=== PATIENT | male | born 1930 | race Caucasian/White ===

== ENCOUNTER 2017-07-24 09:14 | Observation (INO) | payer MEDICARE, BC ==
[2017-07-24] MEDS ORDERED: SODIUM CHLORIDE 0.9% 1,000 ML IV STA (09:26)
[2017-07-24] MEDS ORDERED: NITROGLYCERIN SL TABS 0.4 MG TAB SUBLINGUAL STA (09:26)
[2017-07-24] MEDS ORDERED: ASPIRIN 81 MG PO STA (09:26)
--- NOTE | 2017-07-24 09:31 | ED ---
Chest Pain HPI - General Chief Complaint: Chest Pain Stated Complaint: chest pain Time Seen by Provider: 07/24/17 09:19 Source: patient, family, RN notes reviewed Mode of arrival: wheelchair Limitations: no limitations - History of Present Illness Initial Comments: This 86-year-old male with a history of heart disease who states he had the onset last evening of intermittent episodes of left-sided chest pain it persisted throughout the night and into this morning. He states that sharp left -sided 78/10 in severity associate was some shortness of breath. He has dizziness when he did have some dizziness recently. No fevers chills sweats no nausea no cough or phlegm production. No abdominal pain. MD Complaint: chest pain - Related Data Home Medications Medication Instructions Recorded Confirmed Loratadine [Claritin] 10 mg PO DAILY 05/03/14 07/24/17 ALPRAZolam [Xanax] 0.25 - 0.5 mg PO TID PRN 07/24/17 07/24/17 Omeprazole 40 mg PO DAILY 07/24/17 07/24/17 Previous Rx's Medication Instructions Recorded Atorvastatin [Lipitor] 40 mg PO HS #30 tablet 05/06/14 Nitroglycerin Sl Tabs [Nitrostat] 0.4 mg SUBLINGUAL Q5M PRN #20 tab 05/06/14 Aspirin 81 mg PO BID #60 chewable 05/14/14 Allergies Allergy/AdvReac Type Severity Reaction Status Date / Time Penicillins Allergy Rash/Hives Verified 07/24/17 09:38 Sulfa (Sulfonamide Allergy Rash/Hives Verified 07/24/17 09:38 Antibiotics) Review of Systems ROS Statement: Those systems with pertinent positive or pertinent negative responses have been documented in the HPI. ROS Other: All systems not noted in ROS Statement are negative. EKG Findings - EKG Results: EKG: interpreted by JACK, sinus rhythm (Sinus rhythm with a rate of 68 IN interval 166 QRS duration 146 QT since QTC of 424/450 evidence a right bundle- branch block pattern. This EKG is compared with multiple EKGs from April 2014) Past Medical History Past Medical History: Cancer, Chest Pain / Angina, Eye Disorder, GERD/Reflux, Hyperlipidemia, Hypertension, Myocardial Infarction (CT), Osteoarthritis (OA), Prostate Disorder Additional Past Medical History / Comment(s): SHORTNESS OF BREATH. HX PROSTATE CA; HX CATARACTS; COPD PER CXR. Last Myocardial Infarction Date:: 2013 History of Any Multi-Drug Resistant Organisms: None Reported Past Surgical History: Heart Catheterization With Stent, Orthopedic Surgery, Prostate Surgery, Tonsillectomy Additional Past Surgical History / Comment(s): RT FOOT SURG. CATH W/ STENT, AND RESTENTING, TOTAL STENTS X3, CATARACTS SX Past Anesthesia/Blood Transfusion Reactions: No Reported Reaction Date of Last Stent Placement:: 04/2014 Past Psychological History: No Psychological Hx Reported Smoking Status: Never smoker Past Alcohol Use History: None Reported Past Drug Use History: None Reported - Past Family History Mother Sister(s) Family Medical History: Cancer Mother Daughter(s) Family Medical History: Cancer General Exam - General Exam Comments Initial Comments: This is a well-developed well-nourished awake alert oriented 3 male Limitations: no limitations General appearance: alert, in no apparent distress Head exam: Present: atraumatic, normocephalic, normal inspection Eye exam: Present: normal appearance, PERRL, EOMI. Absent: scleral icterus, conjunctival injection, periorbital swelling ENT exam: Present: normal exam, mucous membranes moist Neck exam: Present: normal inspection. Absent: tenderness, meningismus, lymphadenopathy Respiratory exam: Present: normal lung sounds bilaterally, chest wall tenderness (Reproducible tenderness palpation he does state however he had pain like this with his previous heart disease and stents.). Absent: respiratory distress, wheezes, rales, rhonchi, stridor Cardiovascular Exam: Present: regular rate, normal rhythm, normal heart sounds. Absent: systolic murmur, diastolic murmur, rubs, gallop, clicks GI/Abdominal exam: Present: soft, normal bowel sounds. Absent: distended, tenderness, guarding, rebound, rigid Extremities exam: Present: normal inspection, full ROM, normal capillary refill. Absent: tenderness, pedal edema, joint swelling, calf tenderness Back exam: Present: normal inspection Neurological exam: Present: alert, oriented X3, CN II-XII intact Psychiatric exam: Present: normal affect, normal mood Skin exam: Present: warm, dry, intact, normal color. Absent: rash Course Vital Signs 07/24/17 07/24/17 07/24/17 09:15 10:32 11:20 Temperature 98.3 F Pulse Rate 68 96 60 Respiratory 20 18 18 Rate Blood Pressure 151/70 143/72 148/70 O2 Sat by Pulse 99 98 98 Oximetry Chest Pain MDM - MDM I did review the imaging and reports no acute findings. I did discuss the findings with the patient and his family who were present. Patient will be admitted for evaluation by cardiology. Patient's symptoms are similar to his previous cardiac episode so initially the initial lab findings EKG are nondiagnostic. Critical Care Time Critical Care Time: Yes Critical Care Time: 31 minutes of critical care time which includes initial presentation with history physical labs x-rays reevaluation patient on several occasions discussion with the patient family members regarding findings. Review of old charting that was available. Discussion with the admitting physician and admission orders and documentation of the above. Disposition Clinical Impression: Unstable angina pectoris, Atypical chest pain Disposition: ADMITTED IP TO THIS [facility] Condition: Stable Referrals: Ken Rod MD [Primary Care Provider] - 1-2 days
[2017-07-24 10:07] LABS: Basophils % (A) 1 %; CH 30.6; CHCM 34.2; Eosinophils # (A) 0.1 k/uL (0-0.7); Eosinophils % (A) 1 %; HDW 2.51; HGB 12.6 gm/dL (13.0-17.5); Luc % (Auto) 2; Lymphocytes # (A) 1.2 k/uL (1.0-4.8); Lymphocytes % (A) 23 %; MCH 29.8 pg (25.0-35.0); MCHC 33.1 g/dL (31.0-37.0); Mean Platelet Volume 7.3; Monocytes # (A) 0.4 k/uL (0-1.0); Monocytes % (A) 7 %; Neutrophils # (A) 3.7 k/uL (1.3-7.7); Neutrophils % (A) 67 %; RBC 4.22 m/uL (4.30-5.90); WBC 5.5 k/uL (3.8-10.6); WBC (Perox) 5.91
[2017-07-24 10:14] LABS: ALT 41 U/L (21-72); AST 22 U/L (17-59); Alkaline Phosphatase 65 U/L (38-126); Anion Gap 12 mmol/L; Blood Urea Nitrogen 21 mg/dL (9-20); Calcium 9.5 mg/dL (8.4-10.2); Carbon Dioxide 25 mmol/L (22-30); Chloride 103 mmol/L (98-107); Glucose 86 mg/dL (74-99); Magnesium 1.9 mg/dL (1.6-2.3); Non-African American GFR(MDRD) >60 (>60 ml/min/1.73 sqM); Potassium 4.1 mmol/L (3.5-5.1); Sodium 140 mmol/L (137-145); Total Bilirubin 0.6 mg/dL (0.2-1.3); Total Protein 6.9 g/dL (6.3-8.2)
[2017-07-24 10:24] LABS: Partial Thromboplastin Time 24.2 sec (22.0-30.0); Prothrombin Time 10.6 sec (9.0-12.0)
--- NOTE | 2017-07-24 10:30 | XR ---
EXAMINATION TYPE: XR chest 2V DATE OF EXAM: 07/24/2017 COMPARISON: 03/12/2015 HISTORY: Chest pain and shortness of breath TECHNIQUE: Frontal and lateral views of the chest are obtained. FINDINGS: There is no focal air space opacity, pleural effusion, or pneumothorax seen. There is pulm onary hyperinflation with flattening of the diaphragms on the lateral image and biapical lucency rela ting to underlying COPD. Partial intrathoracic stomach is noted. The cardiac silhouette size is with in normal limits. The osseous structures are intact. Mild degenerative changes of the thoracic spin e are seen. IMPRESSION: 1. No acute cardiopulmonary process. 2. Radiographic sequela of COPD. 3. Partial intrathoracic stomach.
[2017-07-24 10:38] LABS: Creatine Kinase 100 U/L (55-170)
[2017-07-24 10:50] LABS: Creatine Kinase MB 1.7 ng/mL (0.0-2.4); Troponin I <0.012 ng/mL (0.000-0.034)
[2017-07-24] MEDS ORDERED: NITROGLYCERIN SL TABS 0.4 MG TAB SUBLINGUAL PRN (11:56)
[2017-07-24] MEDS ORDERED: HEPARIN SODIUM,PORCINE 5,000 UNIT/ML 1 ML VIAL IV ONE (11:56)
[2017-07-24] MEDS ORDERED: HEPARIN SODIUM,PORCINE/D5W PMX 25,000 UNIT in DEXTROSE/WATER 1 500ML.BAG IV SCH (12:00)
[2017-07-24] MEDS ORDERED: SODIUM CHLORIDE 0.9% 1,000 ML IV SCH (12:00)
[2017-07-24] MEDS: NITROGLYCERIN OINT 1 INCH/GM PACKET TOPICAL SCH ×2 (13:27→21:04)
[2017-07-24 15:56] LABS: Creatine Kinase 84 U/L (55-170)
[2017-07-24 16:08] LABS: Creatine Kinase MB 1.4 ng/mL (0.0-2.4); Troponin I <0.012 ng/mL (0.000-0.034)
--- NOTE | 2017-07-24 16:14 | P.HPIM ---
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 Patient chest pain is constant 8 x 10 in severity nonradiating, reproducible musculoskeletal, not associated with shortness of breath at is diaphoresis night and not associated with nausea or vomiting. Patient denied any cough. His chest pain is nonpleuritic in nature Review of Systems REVIEW OF SYSTEMS: CONSTITUTIONAL: No fever, no malaise, no fatigue. HEENT: No recent visual problems or hearing problems. Denied any sore throat. CARDIOVASCULAR: No orthopnea, PND, no palpitations, no syncope. PULMONARY: No shortness of breath, no cough, no hemoptysis. GASTROINTESTINAL: No diarrhea, no nausea, no vomiting, no abdominal pain. Normoactive bowel sounds. NEUROLOGICAL: No headaches, no weakness, no numbness. HEMATOLOGICAL: Denies any bleeding or petechiae. GENITOURINARY: Denies any burning micturition, frequency, or urgency. MUSCULOSKELETAL/RHEUMATOLOGICAL: Denies any joint pain, swelling, or any muscle pain. ENDOCRINE: Denies any polyuria or polydipsia. The rest of the 14-point review of systems is negative. Past Medical History Past Medical History: Coronary Artery Disease (CAD), Cancer, Chest Pain / Angina , Eye Disorder, GERD/Reflux, Hyperlipidemia, Hypertension, Myocardial Infarction (MT), Osteoarthritis (OA), Prostate Disorder Additional Past Medical History / Comment(s): Prostrate cancer with surgery/ radiation, vertigo, bilateral tinnitis-worse in R ear, head injuries with concussions, R foot burning sensation since power take off injury. Last Myocardial Infarction Date:: 2013 History of Any Multi-Drug Resistant Organisms: None Reported Past Surgical History: Heart Catheterization, Heart Catheterization With Stent, Orthopedic Surgery, Prostate Surgery, Tonsillectomy Additional Past Surgical History / Comment(s): PROSTATECTOMY, RT FOOT SURG AFTER POWER TAKE OFF INJURY, PCI W/ STENTS, TOTAL STENTS X3, Past Anesthesia/Blood Transfusion Reactions: No Reported Reaction Date of Last Stent Placement:: 04/2014 Smoking Status: Never smoker - Past Family History Mother Sister(s) Family Medical History: Cancer Father Family Medical History: No Reported History Additional Family Medical History / Comment(s): Father was healthy and lived into his 80s Mother Daughter(s) Family Medical History: Cancer Additional Family Medical History / Comment(s): unknown type of cancer. Medications and Allergies Home Medications Medication Instructions Recorded Confirmed Type Loratadine [Claritin] 10 mg PO DAILY 05/03/14 07/24/17 History Atorvastatin [Lipitor] 40 mg PO HS #30 tablet 05/06/14 07/24/17 Rx Nitroglycerin Sl Tabs [Nitrostat] 0.4 mg SUBLINGUAL Q5M PRN #20 tab 05/06/14 Rx Aspirin 81 mg PO BID #60 chewable 05/14/14 07/24/17 Rx ALPRAZolam [Xanax] 0.25 - 0.5 mg PO TID PRN 07/24/17 07/24/17 History Omeprazole 40 mg PO DAILY 07/24/17 07/24/17 History Allergies Allergy/AdvReac Type Severity Reaction Status Date / Time Penicillins Allergy Rash/Hives Verified 07/24/17 09:38 Sulfa (Sulfonamide Allergy Rash/Hives Verified 07/24/17 09:38 Antibiotics) Physical Exam Vitals: Vital Signs Temp Pulse Pulse Resp BP BP Pulse Ox 07/24/17 16:00 98.1 F 63 18 140/73 98 07/24/17 15:27 98 07/24/17 13:07 97.7 F 55 L 18 143/66 100 07/24/17 12:21 59 L 18 142/89 100 07/24/17 11:20 60 18 148/70 98 07/24/17 10:32 96 18 143/72 98 07/24/17 09:15 98.3 F 68 20 151/70 99 Intake and Output 07/24/17 07/24/17 07/24/17 06:59 14:59 22:59 Other: Voiding Method Toilet # Voids 1 Weight 76.9 kg Patient Weight 07/25/17 06:59 Weight 76.9 kg PHYSICAL EXAMINATION: GENERAL: The patient is alert and oriented x3, not in any acute distress. Well developed, well nourished. HEENT: Pupils are round and equally reacting to light. EOMI. No scleral icterus. No conjunctival pallor. Normocephalic, atraumatic. No pharyngeal erythema. No thyromegaly. CARDIOVASCULAR: S1 and S2 present. No murmurs, rubs, or gallops. Chest pain is reproducible PULMONARY: Chest is clear to auscultation, no wheezing or crackles. ABDOMEN: Soft, nontender, nondistended, normoactive bowel sounds. No palpable organomegaly. MUSCULOSKELETAL: No joint swelling or deformity. EXTREMITIES: No cyanosis, clubbing, or pedal edema. NEUROLOGICAL: Gross neurological examination did not reveal any focal deficits. SKIN: No rashes. Results CBC & Chem 7: 07/24/17 09:50 07/24/17 09:50 Labs: Abnormal Lab Results - Last 24 Hours (Table) 07/24/17 07/24/17 Range/Units 09:50 09:50 RBC 4.22 L (4.30-5.90) m/uL Hgb 12.6 L (13.0-17.5) gm/dL Hct 38.0 L (39.0-53.0) % BUN 21 H (9-20) mg/dL Thrombosis Risk Factor Assmnt - Choose All That Apply Any of the Below Risk Factors Present?: Yes Other Risk Factors: Yes Each Risk Factor Represents 2 Points: Malignancy Each Risk Factor Represents 3 Points: Age 75 years or older Other congenital or acquired thrombophilia - If yes, enter type in comment: No Thrombosis Risk Factor Assessment Total Risk Factor Score: 5 Thrombosis Risk Factor Assessment Level: High Risk Assessment and Plan Plan: #1 chest pain: Related to reducible in nature mostly musculoskeletal but we will rule out acute coronary syndromes and unstable angina, cardiology was consulted. #2 history of coronary artery disease #3 hyperlipidemia #4 gastroesophageal reflux disease For above-mentioned chronic medical problems patient will be continued on home medications.
--- NOTE | 2017-07-24 19:11 | ECHOF ---
Referral Reason:chest pain MEASUREMENTS -------- HEIGHT: 182.9 cm WEIGHT: 78.5 kg BP: 142/89 RVIDd: 3.3 cm (< 3.3) IVSd: 1.0 cm (0.6 - 1.1) LVIDd: 3.9 cm (3.9 - 5.3) LVPWd: 1.0 cm (0.6 - 1.1) IVSs: 1.6 cm LVIDs: 2.8 cm LVPWs: 1.7 cm LA Diam: 2.9 cm (2.7 - 3.8) LAESV Index (A-L): 29.12 ml/m Ao Diam: 3.7 cm (2.0 - 3.7) AV Cusp: 2.0 cm (1.5 - 2.6) MV EXCURSION: 13.015 mm (> 18.000) MV EF SLOPE: 76 mm/s (70 - 150) EPSS: 1.3 cm MV E John: 1.05 m/s MV DecT: 185 ms MV A John: 0.99 m/s MV E/A Ratio: 1.07 AR PHT: 699 ms RAP: 5.00 mmHg RVSP: 33.26 mmHg FINDINGS -------- Resting bradycardia (HR<60bpm). This was a technically adequate study. The left ventricular size is normal. Left ventricular wall thickness is normal. Overall left ventricular systolic function is low-normal with, an EF between 50 - 55 %. The right ventricle is mildly enlarged. LA is midly dilated 29-33ml/m2. The right atrium is normal in size. There is mild aortic valve sclerosis. There is mild aortic regurgitation. The mitral valve is normal. Mild tricuspid regurgitation present. Right ventricular systolic pressure is normal at < 35 mmHg. There is no pulmonic regurgitation present. The aortic root is dilated measuring 3.7cm. Normal inferior vena cava with normal inspiratory collapse consistent with estimated right atrial pressure of 5 mmHg. There is no pericardial effusion. CONCLUSIONS -------- 1. Resting bradycardia (HR<60bpm). 2. There is mild aortic regurgitation. 3. The mitral valve is normal. 4. Mild tricuspid regurgitation present. 5. Right ventricular systolic pressure is normal at < 35 mmHg. 6. There is no pulmonic regurgitation present. 7. The aortic root is dilated measuring 3.7cm. 8. Normal inferior vena cava with normal inspiratory collapse consistent with estimated right atrial pressure of 5 mmHg. 9. There is no pericardial effusion. 10. This was a technically adequate study. 11. The left ventricular size is normal. 12. Left ventricular wall thickness is normal. 13. Overall left ventricular systolic function is low-normal with, an EF between 50 - 55 %. 14. The right ventricle is mildly enlarged. 15. LA is midly dilated 29-33ml/m2. 16. The right atrium is normal in size. 17. There is mild aortic valve sclerosis. FINISHING PAN OPERATOR: Glenna Patricio RDCS
[2017-07-24] MEDS ORDERED: ATORVASTATIN 40 MG TAB PO SCH (21:00)
[2017-07-24 22:16] LABS: Creatine Kinase 76 U/L (55-170)
[2017-07-24 22:28] LABS: Creatine Kinase MB 1.1 ng/mL (0.0-2.4); Troponin I <0.012 ng/mL (0.000-0.034)
[2017-07-25 03:03] LABS: Cholesterol 111 mg/dL (<200); HDL Cholesterol 40 mg/dL (40-60)
[2017-07-25] MEDS: NITROGLYCERIN OINT 1 INCH/GM PACKET TOPICAL SCH ×2 (03:54→07:01)
[2017-07-25] MEDS ORDERED: PANTOPRAZOLE 40 MG TABLET PO SCH (07:30)
[2017-07-25 08:24] VITALS: RESP 16
[2017-07-25] MEDS ORDERED: ASPIRIN 325 MG TAB PO SCH (09:00)
[2017-07-25] MEDS ORDERED: LORATADINE 10 MG TAB PO SCH (09:00)
[2017-07-25] MEDS ORDERED: ASPIRIN 81 MG PO SCH (09:23)
--- NOTE | 2017-07-25 10:36 | CONS ---
CONSULTATION Mr. Mai is an 86-year-old male who is followed on a regular basis by Dr. 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 The discomfort is left- sided without any radiation and different from his prior anginal pain. He has a known history of coronary disease and he presented in 2013 with a non STEMI and an occluded left circumflex obtuse marginal branch and underwent stenting of that vessel. Subsequently was readmitted to the hospital in February of 2015, underwent repeat cardiac catheterization and was found to have intermediate disease in the mid and distal left circumflex with normal fractional flow reserve. He is reasonably active physically, has no exertional chest pain, has no tightness in the chest. No breathing problem. He has some dizziness. No palpitation. No syncope. No PND or orthopnea or peripheral edema. At the time of his cardiac catheterization, he had mild disease in the LAD with mild to moderate disease in the right coronary artery. Patient's coronary risk factors are positive for hyperlipidemia. He is a nonsmoker, nondiabetic, no documented hypertension. MEDICATION: His medications at home included aspirin once a day, omeprazole 40 mg daily and alprazolam on a p.r.n. basis. REVIEW OF SYSTEMS: RESPIRATORY SYSTEM: He has no recent wheezing. No cough. No history of documented obstructive lung disease. GI SYSTEM: No recent GI bleed. No peptic ulcer disease. SYSTEM: No dysuria or hematuria. NERVOUS SYSTEM: No history of stroke or seizure. PHYSICAL EXAMINATION: He is an 86-year-old male, alert, oriented, in no apparent distress. Blood pressure 140/70 with the heart rate in the 70s. HEAD: Normocephalic. EYES: Sclerae anicteric. NECK: Good carotid upstroke. No bruit. No jugular venous distention. LUNGS: Clear to auscultation. HEART: Regular rate and rhythm. S1, S2. No S3 with a systolic murmur ejection type early peaking. No diastolic murmur. Chest wall with chest wall tenderness located on the left side reproducing his pain. ABDOMEN: Soft, nontender. Positive bowel sounds. No organomegaly. EXTREMITIES: No edema. Intact pulses. EKG revealed sinus mechanism with a right bundle branch block and no acute ST-segment changes. The right bundle branch block is new since 2013. LAB DATA: Lab data revealed troponin less than 0.012 for 3 samples. BUN and creatinine 21 and 0.94. Potassium 4.1. Cholesterol of 111 and LDL of 52. Hemoglobin of 12.6. Chest x-ray revealed no acute infiltrate. Echocardiogram performed during this admission showing a ejection fraction of 50% to 55% with mild tricuspid regurgitation. IMPRESSION: 1. Symptoms of chest discomfort, atypical for ischemic heart disease, probably musculoskeletal in etiology, reproducible by palpation. 2. History of coronary disease, status post percutaneous revascularization of the left circumflex with no evidence for acute coronary syndrome. 3. History of hyperlipidemia. RECOMMENDATION: From the cardiac standpoint, I will stop his heparin, increase his level of activity. If he stable, he should be able to be discharged home today and followed as an outpatient by Dr. Hsu. Thank you for this consult. We will follow with you. CECELIA / PAULO: [id number] /
[2017-07-25 12:26] VITALS: BP 123/54; PULSE 68; TEMP 98.1
--- NOTE | 2017-07-25 14:25 | P.DS ---
Providers Date of admission: 07/24/17 11:56 Attending physician: Bradly Gutierrez Consults: 07/24/17 11:56 Consult Physician Urgent Consulting Provider: Roland Hsu Consult Reason/Comments: Atypical chest pain, unstable angina Do you want consulting provider notified?: Yes Primary care physician: [facility] Course: Patient was admitted for chest pain rule out acute coronary syndromes A. To be musculoskeletal in nature patient was evaluated by cardiology is being discharged today GENERAL: The patient is alert and oriented x3, not in any acute distress. Well developed, well nourished. HEENT: Pupils are round and equally reacting to light. EOMI. No scleral icterus. No conjunctival pallor. Normocephalic, atraumatic. No pharyngeal erythema. No thyromegaly. CARDIOVASCULAR: S1 and S2 present. No murmurs, rubs, or gallops. Chest pain is reproducible PULMONARY: Chest is clear to auscultation, no wheezing or crackles. ABDOMEN: Soft, nontender, nondistended, normoactive bowel sounds. No palpable organomegaly. MUSCULOSKELETAL: No joint swelling or deformity. EXTREMITIES: No cyanosis, clubbing, or pedal edema. NEUROLOGICAL: Gross neurological examination did not reveal any focal deficits. SKIN: No rashes. #1 chest pain: Related to reducible in nature mostly musculoskeletal but we will rule out acute coronary syndromes and unstable angina, cardiology was consulted. #2 history of coronary artery disease #3 hyperlipidemia #4 gastroesophageal reflux disease Patient Condition at Discharge: Stable Plan - Discharge Summary New Discharge Prescriptions: No Action Loratadine [Claritin] 10 mg PO DAILY Atorvastatin [Lipitor] 40 mg PO HS #30 tablet Nitroglycerin Sl Tabs [Nitrostat] 0.4 mg SUBLINGUAL Q5M PRN #20 tab PRN Reason: Chest Pain Aspirin 81 mg PO BID #60 chewable Omeprazole 40 mg PO DAILY ALPRAZolam [Xanax] 0.25 - 0.5 mg PO TID PRN PRN Reason: Anxiety Discharge Medication List Loratadine [Claritin] 10 mg PO DAILY 05/03/14 [History] Atorvastatin [Lipitor] 40 mg PO HS #30 tablet 05/06/14 [Rx] Nitroglycerin Sl Tabs [Nitrostat] 0.4 mg SUBLINGUAL Q5M PRN #20 tab 05/06/14 [Rx ] Aspirin 81 mg PO BID #60 chewable 05/14/14 [Rx] ALPRAZolam [Xanax] 0.25 - 0.5 mg PO TID PRN 07/24/17 [History] Omeprazole 40 mg PO DAILY 07/24/17 [History] Follow up Appointment(s)/Referral(s): Roland Hsu MD [STAFF PHYSICIAN] - 1 Week Ken Rod MD [Primary Care Provider] - 3 Days Patient Instructions/Handouts: Chest Pain (DC) Discharge Disposition: HOME SELF-CARE
== END 2017-07-25 14:21 | disposition home or self-care (01) ==
LOC: EC 09:14 → 3OBS 11:56
PROVIDERS: ADMIT Hospitalist; ATTEND Hospitalist
DX: R07.89 Other chest pain (principal); I25.119 Atherosclerotic heart disease of native coronary artery with unspecified angina pectoris; I10 Essential (primary) hypertension; E78.5 Hyperlipidemia, unspecified; K21.9 Gastro-esophageal reflux disease without esophagitis; I45.10 Unspecified right bundle-branch block; J44.9 Chronic obstructive pulmonary disease, unspecified; I25.2 Old myocardial infarction; Z95.5 Presence of coronary angioplasty implant and graft; Z88.0 Allergy status to penicillin; Z88.2 Allergy status to sulfonamides; Z79.82 Long term (current) use of aspirin; Z79.899 Other long term (current) drug therapy
CPT/HCPCS: 99291 ×2; 96376 ×2; 96361 ×4; 96365; 96366 ×2; 36415; 93005; 93306; 85379; 83880; 80061; 80053; 82550; 82553; 83735; 84484; 85025; 85610; 85730; 71020; G0378 ×2; J1644 ×2

== ENCOUNTER 2019-05-01 10:58 | Emergency (ER) | payer MEDICARE, BC ==
[2019-05-01 11:02] VITALS: TEMP 98.3
--- NOTE | 2019-05-01 11:18 | ED ---
General Adult HPI - General Chief complaint: ENT Stated complaint: FB IN THROAT Time Seen by Provider: 05/01/19 11:00 Source: patient, family, RN notes reviewed Mode of arrival: ambulatory Limitations: no limitations - History of Present Illness Initial comments: This is an 88-year-old male who presents to the emergency department complaining of a hill stuck in his throat. Patient states he took a pill this morning at 8:00. Patient states he still feels as though it's in his throat. Patient states he is able to swallow saliva. Patient states he was able to keep down a banana as well. Patient states he's had strictures in his throat multiple times in the past. And had dilation multiple times in the past. Patient denies any difficulty breathing. Patient denies eating anything else but the pill in the banana. - Related Data Home Medications Medication Instructions Recorded Confirmed Loratadine [Claritin] 10 mg PO DAILY 05/03/14 05/01/19 Omeprazole 40 mg PO DAILY 07/24/17 05/01/19 Lipo Flavonoid 1 tab PO DAILY 05/01/19 05/01/19 Previous Rx's Medication Instructions Recorded Atorvastatin [Lipitor] 40 mg PO HS #30 tablet 05/06/14 Nitroglycerin Sl Tabs [Nitrostat] 0.4 mg SUBLINGUAL Q5M PRN #20 tab 05/06/14 Aspirin 81 mg PO BID #60 chewable 05/14/14 Allergies Allergy/AdvReac Type Severity Reaction Status Date / Time Penicillins Allergy Rash/Hives Verified 05/01/19 11:37 Sulfa (Sulfonamide Allergy Rash/Hives Verified 05/01/19 11:37 Antibiotics) Review of Systems ROS Statement: Those systems with pertinent positive or pertinent negative responses have been documented in the HPI. ROS Other: All systems not noted in ROS Statement are negative. Past Medical History Past Medical History: Coronary Artery Disease (CAD), Cancer, Chest Pain / Angina, Eye Disorder, GERD/Reflux, Hyperlipidemia, Hypertension, Myocardial Infarction ([place]), Osteoarthritis (OA), Prostate Disorder Additional Past Medical History / Comment(s): Prostrate cancer with surgery/radiation, vertigo, bilateral tinnitis-worse in R ear, head injuries with concussions, R foot burning sensation since power take off injury. Last Myocardial Infarction Date:: 2013 History of Any Multi-Drug Resistant Organisms: None Reported Past Surgical History: Heart Catheterization, Heart Catheterization With Stent, Orthopedic Surgery, Prostate Surgery, Tonsillectomy Additional Past Surgical History / Comment(s): PROSTATECTOMY, RT FOOT SURG AFTER POWER TAKE OFF INJURY, PCI W/ STENTS, TOTAL STENTS X3, Past Anesthesia/Blood Transfusion Reactions: No Reported Reaction Date of Last Stent Placement:: 04/2014 Past Psychological History: No Psychological Hx Reported Smoking Status: Never smoker Past Alcohol Use History: None Reported Past Drug Use History: None Reported - Past Family History Mother Sister(s) Family Medical History: Cancer Father Family Medical History: No Reported History Additional Family Medical History / Comment(s): Father was healthy and lived into his 80s Mother Daughter(s) Family Medical History: Cancer Additional Family Medical History / Comment(s): unknown type of cancer. General Exam - General Exam Comments Initial Comments: GENERAL: Patient is well-developed and well-nourished. Patient is nontoxic and well- hydrated and is in no acute distress. ENT: Neck has full range of motion without eliciting any pain. EYES: The sclera were anicteric and conjunctiva were pink and moist. Extraocular mo vements were intact and pupils were equal round and reactive to light. SKIN: Skin is clear with no lesions or rashes and otherwise unremarkable. NEUROLOGIC: Patient is alert and oriented x3. Cranial nerves II through XII are grossly intact. Motor and sensory are also intact. Normal speech, volume and content. Symmetrical smile. LYMPHATICS: No significant lymphadenopathy is noted PSYCHIATRIC: Normal psychiatric evaluation. Limitations: no limitations Course Vital Signs 05/01/19 05/01/19 11:00 12:23 Temperature 98.3 F Pulse Rate 71 64 Respiratory 16 18 Rate Blood Pressure 149/67 139/78 O2 Sat by Pulse 98 97 Oximetry Medical Decision Making - Medical Decision Making Patient was able to drink pop and eating Jell-O without a problem in the emergency department so at this point time we thought the patient was just experiencing a sensation of a foreign body no longer having a foreign body. Patient was in agreement with going home and following up as needed Disposition Clinical Impression: Esophageal foreign body Disposition: HOME SELF-CARE Instructions (If sedation given, give patient instructions): Esophageal Foreign Body (ED) Additional Instructions: Patient should follow-up with the blankbook stitching machine operator Is patient prescribed a controlled substance at d/c from ED?: No Referrals: Ken Rod MD [Primary Care Provider] - 1-2 days Time of Disposition: 12:13
[2019-05-01 12:24] VITALS: BP 139/78; PULSE 64; RESP 18
== END 2019-05-01 12:23 ==
LOC: EC 10:58
DX: T18.198A Other foreign object in esophagus causing other injury, initial encounter (principal); K21.9 Gastro-esophageal reflux disease without esophagitis; I25.2 Old myocardial infarction; Z85.46 Personal history of malignant neoplasm of prostate; Z95.818 Presence of other cardiac implants and grafts; Z95.5 Presence of coronary angioplasty implant and graft; Z79.899 Other long term (current) drug therapy; Z88.0 Allergy status to penicillin; Z88.2 Allergy status to sulfonamides
CPT/HCPCS: 99283

== ENCOUNTER → 2019-05-11 | Outpatient (CLI) | payer MEDICARE, BC ==
--- NOTE | 2019-05-16 19:23 | ENG ---
ELECTRONYSTAGMOGRAM REPORT VIDEO ELECTRONYSTAGMOGRAPHIC REPORT: AGE: 88 REQUESTING PHYSICIAN: Dr. Arellano VNG INDICATIONS: Dizziness, ongoing for up to a year, gradual progressively worse and is constant. Dizziness can be provoked or worsened by any of the changes in body, head and neck positions. VNG FINDINGS: SPONTANEOUS NYSTAGMUS: None encountered. SACCADES: Saccades shows intact accuracies but poor peak velocities and latencies. GAZE TEST: Gaze with fixation shows no nystagmus in any of the directions of gaze including centrally with vision denied. SINUSOIDAL TRACKING: Tracking shows faster speed to be impaired and slower speeds intact. OKN TEST: Optokinetic nystagmus shows abnormal asymmetry at 40 degrees. CYNTHIA-HALLPIKE TEST: Dynamic position testing not completed due to poor patient mobility. POSITION TEST: Static position testing in 4 different positions with eyes open and vision denied showed no nystagmus. Right side and left side not done. DYNAMIC POSITION TESTING: not performed due to poor patient mobility. CALORIC TEST: Caloric testing shows bilateral caloric weakness and so is indeterminate. IMPRESSION: This is an abnormal VNG study due to impaired saccades and impaired tracking at faster speeds and asymmetrical optokinetic nystagmus. All of these are features consistent with central nervous system dysfunction. Caloric testing showed bilateral weakness and so no determination as to vestibulopathy could be made. Another test such as head thrust test or if available eyes active and passive rotation testing are required to confirm presence of bilateral vestibular dysfunction. Dynamic position testing not done due to poor patient mobility and so determination for benign positional vertigo could be made. CECELIA / NATASHAN: [id number] / MTDNas
== END | disposition home or self-care (01) ==
LOC: NEUROMAIN 08:26
PROVIDERS: ATTEND Otolaryngology
DX: H55.81 Deficient saccadic eye movements (principal); H55.09 Other forms of nystagmus; R53.1 Weakness
CPT/HCPCS: 92537; 92540

== ENCOUNTER 2019-08-29 14:50 | Inpatient (IN) | payer MEDICARE, BC ==
[2019-08-29] MEDS ORDERED: NITROGLYCERIN OINT 1 INCH/GM PACKET TOPICAL STA (15:01)
[2019-08-29] MEDS ORDERED: ASPIRIN 81 MG PO STA (15:01)
--- NOTE | 2019-08-29 15:02 | ED ---
General Adult HPI - General Chief complaint: Chest Pain Stated complaint: Chest Pain Time Seen by Provider: 08/29/19 14:57 Source: patient, RN notes reviewed Mode of arrival: ambulatory Limitations: no limitations - History of Present Illness Initial comments: Patient is a pleasant 88-year-old male presenting to the emergency Department with complaints of chest discomfort. Patient has some minimal symptoms last couple of days, worse today. Discomfort was mid sternal. Discomfort was somewhat sharp however now is mild and dull. No radiation. Patient did feel slightly short of breath and sweaty. There has been some mild nausea without vomiting. Patient does have history of similar symptoms previously associated with cardiac disease. - Related Data Home Medications Medication Instructions Recorded Confirmed Loratadine [Claritin] 10 mg PO DAILY 05/03/14 08/29/19 Omeprazole 40 mg PO DAILY 07/24/17 08/29/19 Previous Rx's Medication Instructions Recorded Atorvastatin [Lipitor] 40 mg PO HS #30 tablet 05/06/14 Nitroglycerin Sl Tabs [Nitrostat] 0.4 mg SUBLINGUAL Q5M PRN #20 tab 05/06/14 Aspirin 81 mg PO BID #60 chewable 05/14/14 Allergies Allergy/AdvReac Type Severity Reaction Status Date / Time Penicillins Allergy Rash/Hives Verified 08/29/19 15:29 Sulfa (Sulfonamide Allergy Rash/Hives Verified 08/29/19 15:29 Antibiotics) Review of Systems ROS Statement: Those systems with pertinent positive or pertinent negative responses have been documented in the HPI. ROS Other: All systems not noted in ROS Statement are negative. Constitutional: Denies: fever Eyes: Denies: eye pain ENT: Denies: ear pain Respiratory: Denies: cough Cardiovascular: Reports: chest pain Endocrine: Denies: fatigue Gastrointestinal: Denies: abdominal pain Genitourinary: Denies: dysuria Musculoskeletal: Denies: back pain Skin: Denies: rash Neurological: Denies: headache Past Medical History Past Medical History: Coronary Artery Disease (CAD), Cancer, Chest Pain / Angina, Eye Disorder, GERD/Reflux, Hyperlipidemia, Hypertension, Myocardial Infarction ([place]), Osteoarthritis (OA), Prostate Disorder Additional Past Medical History / Comment(s): Prostrate cancer with surgery/radiation, vertigo, bilateral tinnitis-worse in R ear, head injuries with concussions, R foot burning sensation since power take off injury. Last Myocardial Infarction Date:: 2013 History of Any Multi-Drug Resistant Organisms: None Reported Past Surgical History: Heart Catheterization, Heart Catheterization With Stent, Orthopedic Surgery, Prostate Surgery, Tonsillectomy Additional Past Surgical History / Comment(s): PROSTATECTOMY, RT FOOT SURG AFTER POWER TAKE OFF INJURY, PCI W/ STENTS, TOTAL STENTS X3, Past Anesthesia/Blood Transfusion Reactions: No Reported Reaction Date of Last Stent Placement:: 04/2014 Past Psychological History: No Psychological Hx Reported Smoking Status: Never smoker Past Alcohol Use History: None Reported Past Drug Use History: None Reported - Past Family History Mother Sister(s) Family Medical History: Cancer Father Family Medical History: No Reported History Additional Family Medical History / Comment(s): Father was healthy and lived into his 80s Mother Daughter(s) Family Medical History: Cancer Additional Family Medical History / Comment(s): unknown type of cancer. General Exam Limitations: no limitations General appearance: alert, in no apparent distress Head exam: Present: normocephalic Eye exam: Present: normal appearance, PERRL ENT exam: Present: normal oropharynx Neck exam: Present: normal inspection Respiratory exam: Present: normal lung sounds bilaterally, chest wall tenderness (Mild tenderness left lower anterior chest) Cardiovascular Exam: Present: regular rate, normal rhythm Expanded Peripheral pulses: 2+: Radial (R), Radial (L), Posterior Tibialis (R), Posterior Tibialis (L), Dorsalis Pedis (R), Dorsalis Pedis (L) GI/Abdominal exam: Present: soft. Absent: tenderness Extremities exam: Present: normal inspection. Absent: pedal edema, calf tenderness Back exam: Present: normal inspection Neurological exam: Present: alert Psychiatric exam: Present: normal affect, normal mood Skin exam: Present: normal color Course Vital Signs 08/29/19 08/29/19 08/29/19 14:53 15:13 15:22 Temperature 98.4 F Pulse Rate 92 102 H Pulse Rate [ 101 H Director Of Psychology ] Respiratory 18 18 Rate Blood Pressure 150/73 142/74 O2 Sat by Pulse 97 98 Oximetry EKG Findings - EKG Comments: EKG Findings:: Sinus rhythm at 100. Frequent PVCs are present. NV 160. QRS 140. QT 366. QTc 472. Normal axis. Right bundle branch block. No acute ST change. Medical Decision Making - Medical Decision Making Patient reevaluated and resting comfortably in bed. Patient is feeling better. Patient and family updated on results and plan. [facility] has been paged for admission. Case was discussed with Dr. Stevens, who will admit. - Lab Data Result diagrams: 08/29/19 15:10 08/29/19 15:10 Lab Results 08/29/19 08/29/19 08/29/19 Range/Units 15:10 15:10 15:10 WBC 14.1 H (3.8-10.6) k/uL RBC 4.27 L (4.30-5.90) m/uL Hgb 13.3 (13.0-17.5) gm/dL Hct 39.1 (39.0-53.0) % MCV 91.4 (80.0-100.0) fL MCH 31.1 (25.0-35.0) pg MCHC 34.0 (31.0-37.0) g/dL RDW 14.0 (11.5-15.5) % Plt Count 268 (150-450) k/uL Neutrophils % 84 % Lymphocytes % 8 % Monocytes % 5 % Eosinophils % 1 % Basophils % 1 % Neutrophils # 11.9 H (1.3-7.7) k/uL Lymphocytes # 1.2 (1.0-4.8) k/uL Monocytes # 0.7 (0-1.0) k/uL Eosinophils # 0.2 (0-0.7) k/uL Basophils # 0.1 (0-0.2) k/uL PT 10.4 (9.0-12.0) sec INR 1.0 (<1.2) APTT 24.3 (22.0-30.0) sec Sodium 140 (137-145) mmol/L Potassium 3.5 (3.5-5.1) mmol/L Chloride 104 (98-107) mmol/L Carbon Dioxide 25 (22-30) mmol/L Anion Gap 11 mmol/L BUN 22 H (9-20) mg/dL Creatinine 0.91 (0.66-1.25) mg/dL Est GFR (CKD-EPI)AfAm 86 (>60 ml/min/1.73 sqM) Est GFR (CKD-EPI)NonAf 75 (>60 ml/min/1.73 sqM) Glucose 122 H (74-99) mg/dL Calcium 9.6 (8.4-10.2) mg/dL Magnesium 1.7 (1.6-2.3) mg/dL Total Bilirubin 0.3 (0.2-1.3) mg/dL AST 27 (17-59) U/L ALT 27 (21-72) U/L Alkaline Phosphatase 70 (38-126) U/L Troponin I (0.000-0.034) ng/mL Total Protein 7.7 (6.3-8.2) g/dL Albumin 4.6 (3.5-5.0) g/dL 08/29/19 Range/Units 15:10 WBC (3.8-10.6) k/uL RBC (4.30-5.90) m/uL Hgb (13.0-17.5) gm/dL Hct (39.0-53.0) % MCV (80.0-100.0) fL MCH (25.0-35.0) pg MCHC (31.0-37.0) g/dL RDW (11.5-15.5) % Plt Count (150-450) k/uL Neutrophils % % Lymphocytes % % Monocytes % % Eosinophils % % Basophils % % Neutrophils # (1.3-7.7) k/uL Lymphocytes # (1.0-4.8) k/uL Monocytes # (0-1.0) k/uL Eosinophils # (0-0.7) k/uL Basophils # (0-0.2) k/uL PT (9.0-12.0) sec INR (<1.2) APTT (22.0-30.0) sec Sodium (137-145) mmol/L Potassium (3.5-5.1) mmol/L Chloride (98-107) mmol/L Carbon Dioxide (22-30) mmol/L Anion Gap mmol/L BUN (9-20) mg/dL Creatinine (0.66-1.25) mg/dL Est GFR (CKD-EPI)AfAm (>60 ml/min/1.73 sqM) Est GFR (CKD-EPI)NonAf (>60 ml/min/1.73 sqM) Glucose (74-99) mg/dL Calcium (8.4-10.2) mg/dL Magnesium (1.6-2.3) mg/dL Total Bilirubin (0.2-1.3) mg/dL AST (17-59) U/L ALT (21-72) U/L Alkaline Phosphatase (38-126) U/L Troponin I <0.012 (0.000-0.034) ng/mL Total Protein (6.3-8.2) g/dL Albumin (3.5-5.0) g/dL - Radiology Data Radiology results: image reviewed (Chest x-ray shows no acute process) Disposition Clinical Impression: Chest pain Disposition: ADMITTED IP TO THIS HOSP Is patient prescribed a controlled substance at d/c from ED?: No Decision Time: 16:20
[2019-08-29 15:22] LABS: Basophils # (A) 0.1 k/uL (0-0.2); Basophils % (A) 1 %; Eosinophils # (A) 0.2 k/uL (0-0.7); Eosinophils % (A) 1 %; HCT 39.1 % (39.0-53.0); HGB 13.3 gm/dL (13.0-17.5); Lymphocytes # (A) 1.2 k/uL (1.0-4.8); Lymphocytes % (A) 8 %; MCH 31.1 pg (25.0-35.0); MCV 91.4 fL (80.0-100.0); Mean Platelet Volume 6.4; Monocytes # (A) 0.7 k/uL (0-1.0); Monocytes % (A) 5 %; Neutrophils # (A) 11.9 k/uL (1.3-7.7); Neutrophils % (A) 84 %; Platelet Count 268 k/uL (150-450); RBC 4.27 m/uL (4.30-5.90); WBC 14.1 k/uL (3.8-10.6)
[2019-08-29 15:30] LABS: Albumin 4.6 g/dL (3.5-5.0); Calcium 9.6 mg/dL (8.4-10.2); Magnesium 1.7 mg/dL (1.6-2.3); Potassium 3.5 mmol/L (3.5-5.1); Total Bilirubin 0.3 mg/dL (0.2-1.3); Total Protein 7.7 g/dL (6.3-8.2)
[2019-08-29 15:35] LABS: Partial Thromboplastin Time 24.3 sec (22.0-30.0); Prothrombin Time 10.4 sec (9.0-12.0)
--- NOTE | 2019-08-29 15:40 | XR ---
EXAMINATION TYPE: XR chest 2V DATE OF EXAM: 08/29/2019 COMPARISON: 07/24/2017 HISTORY: Chest pain TECHNIQUE: Frontal and lateral views of the chest are obtained. FINDINGS: Diffuse osseous demineralization is present. Partial intrathoracic stomach is seen in the r etrocardiac airspace. There is no focal air space opacity, pleural effusion, or pneumothorax seen. The cardiac silhouette size is upper limits of normal. The osseous structures are intact. Moderate multilevel degenerative changes of the spine. IMPRESSION: 1. No acute cardiopulmonary process. 2. 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
[2019-08-29] MEDS ORDERED: NITROGLYCERIN SL TABS 0.4 MG TAB SUBLINGUAL PRN (16:20)
[2019-08-29] MEDS ORDERED: NALOXONE 0.4 MG/ML 1 ML VIAL IV PRN (17:22)
[2019-08-29] MEDS ORDERED: ACETAMINOPHEN TAB 325 MG TAB PO PRN (17:22)
--- NOTE | 2019-08-29 17:28 | P.HPIM ---
History of Present Illness H&P Date: 08/29/19 Chief Complaint: Chest pain 88-year-old male with PMH of CAD post 2 stents, hypertension presents the ED for chest pain. Patient reports chest pain that is been intermittent on and off over the last couple of days. There is no relation to exertion as his chest pain can also occur at rest. Today, his pain was worsening and more frequent which prompted him to come to the ED. Pain is midsternal. Pain is described as stabbing and sharp in nature. Pain is about 5 out of 10 in severity without any radiating features. 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 He does see a dipper machine operator Dr. Edward once a year. He does not have a primary care doctor. He does not smoke cigarettes. He denies any headaches, nausea or vomiting, fever or chills, cough, shortness of breath, any changes in urination or bowel habits. No changes in appetite or weight. Patient denies any dizziness, numbness/weaknes s/tingling of the extremities. In the ED, vital signs are stable except for isolated pulse of 102. CBC showed leukocytosis of 14.1. Coagulation panel was negative. CMP showed BUN of 22. Troponin was less than 0.012, with EKG showing sinus rhythm with frequent PVCs. Chest x-ray showed partial intrathoracic stomach. Patient is admitted for chest pain, rule out acute Rupert syndrome with cardiology on consult. Review of Systems Pertinent positives and negatives as discussed in HPI, a complete review of systems was performed and all other systems are negative. Past Medical History Past Medical History: Coronary Artery Disease (CAD), Cancer, Chest Pain / Angina, Eye Disorder, GERD/Reflux, Hyperlipidemia, Hypertension, Myocardial Infarction ([place]), Osteoarthritis (OA), Prostate Disorder Additional Past Medical History / Comment(s): Prostrate cancer with surgery/radi ation, vertigo, bilateral tinnitis-worse in R ear, head injuries with concussions, R foot burning sensation since power take off injury. Last Myocardial Infarction Date:: 2013 History of Any Multi-Drug Resistant Organisms: None Reported Past Surgical History: Heart Catheterization, Heart Catheterization With Stent, Orthopedic Surgery, Prostate Surgery, Tonsillectomy Additional Past Surgical History / Comment(s): PROSTATECTOMY, RT FOOT SURG AFTER POWER TAKE OFF INJURY, PCI W/ STENTS, TOTAL STENTS X3, Past Anesthesia/Blood Transfusion Reactions: No Reported Reaction Date of Last Stent Placement:: 04/2014 Past Psychological History: No Psychological Hx Reported Smoking Status: Never smoker Past Alcohol Use History: None Reported Past Drug Use History: None Reported - Past Family History Mother Sister(s) Family Medical History: Cancer Father Family Medical History: No Reported History Additional Family Medical History / Comment(s): Father was healthy and lived into his 80s Mother Daughter(s) Family Medical History: Cancer Additional Family Medical History / Comment(s): unknown type of cancer. Medications and Allergies Home Medications Medication Instructions Recorded Confirmed Type Loratadine [Claritin] 10 mg PO DAILY 05/03/14 08/29/19 History Atorvastatin [Lipitor] 40 mg PO HS #30 tablet 05/06/14 08/29/19 Rx Nitroglycerin Sl Tabs [Nitrostat] 0.4 mg SUBLINGUAL Q5M PRN #20 tab 05/06/14 08/29/19 Rx Aspirin 81 mg PO BID #60 chewable 05/14/14 08/29/19 Rx Omeprazole 40 mg PO DAILY 07/24/17 08/29/19 History Allergies Allergy/AdvReac Type Severity Reaction Status Date / Time Penicillins Allergy Rash/Hives Verified 08/29/19 15:29 Sulfa (Sulfonamide Allergy Rash/Hives Verified 08/29/19 15:29 Antibiotics) Physical Exam Vitals: Vital Signs Temp Pulse Pulse Resp BP Pulse Ox 08/29/19 16:51 99.0 F 93 18 125/67 98 08/29/19 15:22 102 H 18 142/74 98 08/29/19 15:13 101 H 08/29/19 14:53 98.4 F 92 18 150/73 97 Intake and Output 08/29/19 08/29/19 08/29/19 06:59 14:59 22:59 Other: Weight 71.214 kg General: [non toxic], [no distress], [appears at stated age] Derm: [warm], [dry] Head: [atraumatic], [normocephalic], [symmetric] Eyes: [EOMI], [no lid lag], [anicteric sclera] Mouth: [no lip lesion], [mucus membranes moist] Cardiovascular: [S1S2 reg], [no murmur], [positive posterior tibial pulse bilateral], Lungs: [CTA bilateral], [no rhonchi, no rales] , [no accessory muscle use] Abdominal: [soft], [ nontender to palpation], [no guarding], [no appreciable organomegaly] Ext: [no gross muscle atrophy], [no edema], [no contractures] Neuro: [ CN II-XI grossly intact], [no focal neuro deficits] Psych: [Alert], [oriented], [appropriate affect] Results CBC & Chem 7: 08/29/19 15:10 08/29/19 15:10 Labs: Abnormal Lab Results - Last 24 Hours (Table) 08/29/19 08/29/19 Range/Units 15:10 15:10 WBC 14.1 H (3.8-10.6) k/uL RBC 4.27 L (4.30-5.90) m/uL Neutrophils # 11.9 H (1.3-7.7) k/uL BUN 22 H (9-20) mg/dL Glucose 122 H (74-99) mg/dL Assessment and Plan Assessment: Assessment and plan Chest pain with a history of CAD and SD post stent placement Leukocytosis Elevated BUN Troponins less than 0.012 with EKG showing sinus rhythm and frequent PVCs. Chest x-ray shows intrathoracic stomach which could be the cause of his chest pain. Plans: Trend troponin/EKG to rule out ACS. Telemetry monitoring. Continue aspirin and Lipitor. Follow cardiology consultation. Leukocytosis of 14.1. Patient is afebrile. No signs of infection. Plans: Repeat CBC in the morning. BUN 22. Likely due to dehydration. Plans: Encourage hydration by mouth. Re peat BMP in the morning. DVT prophylaxis: [SCD boots] Discussed with: [Patient and family] Anticipated discharge: [1-2 days] Anticipated discharge place: Home A total of [45] minutes was spent on the care of this complex patient more than 50% of the time was spent in counseling and care coordination. Patient names his Sarahi decision-maker in the case that he can't make decisions for himself. Patient reiterates wanting to remain full code. Patient does not have a PCP.
[2019-08-29] MEDS: ASPIRIN 81 MG PO SCH (20:25)
[2019-08-29] MEDS: ATORVASTATIN 40 MG TAB PO SCH (20:26)
[2019-08-30 04:12] LABS: Cholesterol 125 mg/dL (<200); HDL Cholesterol 41 mg/dL (40-60); LDL Cholesterol,Calculated 73 mg/dL (0-99); Triglycerides 53 mg/dL (<150)
[2019-08-30] MEDS: PANTOPRAZOLE 40 MG TABLET PO SCH (06:34)
[2019-08-30] MEDS: ASPIRIN 81 MG PO SCH ×2 (08:42→21:08)
[2019-08-30] MEDS ORDERED: ASPIRIN 325 MG TAB PO SCH (09:00)
--- NOTE | 2019-08-30 10:49 | ECHOF ---
Referral Reason:Chest pain MEASUREMENTS -------- HEIGHT: 182.9 cm WEIGHT: 73.0 kg BP: 120/60 RVIDd: 3.5 cm (< 3.3) IVSd: 1.0 cm (0.6 - 1.1) LVIDd: 4.6 cm (3.9 - 5.3) LVPWd: 1.3 cm (0.6 - 1.1) IVSs: 1.5 cm LVIDs: 2.7 cm LVPWs: 1.3 cm LAESV Index (A-L): 32.29 ml/m Ao Diam: 3.0 cm (2.0 - 3.7) AV Cusp: 1.4 cm (1.5 - 2.6) LA Diam: 3.5 cm (2.7 - 3.8) MV EXCURSION: 15.271 mm (> 18.000) MV EF SLOPE: 64 mm/s (70 - 150) EPSS: 1.2 cm MV E John: 0.66 m/s MV DecT: 150 ms MV A John: 0.83 m/s MV E/A Ratio: 0.79 RAP: 5.00 mmHg RVSP: 36.48 mmHg FINDINGS -------- Undetermined rhythm. This was a technically adequate study. The left ventricular size is normal. Left ventricular wall thickness is normal. Overall left vent ricular systolic function is mildly impaired with, an EF between 45 - 50 %. The diastolic filling p attern is normal for the age of the patient 9.53. The right ventricle is normal in size. The left atrium is mildly dilated. LA is midly dilated 29-33ml/m2. The right atrial size is normal. There is mild aortic valve sclerosis. Trace to mild aortic regurgitation. Mild mitral annular calcification present. Mild mitral regurgitation is present. Mild tricuspid regurgitation present. There is mild pulmonary hypertension. The right ventricular systolic pressure, as measured by Doppler, is 36.48mmHg. Trace/mild (physiologic) pulmonic regurgitation. The aortic root size is normal. Echo free space represents a pericardial fat pad. CONCLUSIONS -------- 1. Undetermined rhythm. 2. This was a technically adequate study. 3. The left ventricular size is normal. 4. Left ventricular wall thickness is normal. 5. The diastolic filling pattern is normal for the age of the patient 9.53 6. The right ventricle is normal in size. 7. The left atrium is mildly dilated. 8. LA is midly dilated 29-33ml/m2. 9. The right atrial size is normal. 10. There is mild aortic valve sclerosis. 11. Trace to mild aortic regurgitation. 12. Mild mitral annular calcification present. 13. Mild mitral regurgitation is present. 14. Mild tricuspid regurgitation present. 15. There is mild pulmonary hypertension. 16. The right ventricular systolic pressure, as measured by Doppler, is 36.48mmHg. 17. Trace/mild (physiologic) pulmonic regurgitation. 18. The aortic root size is normal. 19. Echo free space represents a pericardial fat pad. CORE INSERTER: Page Hope RDCS
[2019-08-30] MEDS ORDERED: ALPRAZolam 0.5 MG TAB PO PRN (10:52)
[2019-08-30] MEDS ORDERED: ALPRAZolam 0.25 MG TAB PO PRN (10:52)
[2019-08-30] MEDS ORDERED: NITROGLYCERIN SL TABS 0.4 MG TAB SUBLINGUAL PRN (10:52)
--- NOTE | 2019-08-30 13:06 | CONS ---
CONSULTATION CHIEF COMPLAINT: Chest pain. Neymar is an 88-year-old gentleman with history of coronary artery disease, status post prior angioplasty, hypertension, dyslipidemia, osteoarthritis, and gastroesophageal reflux disease, who presented to hospital complaining of chest pain. It is mild intensity,. on and off, precordial, but has gotten somewhat worse and more frequent over the last few days. Hence, he came to the ER and got admitted. At the time of my evaluation. He seems chest pain-free. He has had 3 sets of cardiac enzymes that are all within normal limits. An EKG shows sinus rhythm with frequent PVCs and right bundle branch block. He had an echocardiogram on this admission that shows mild LV systolic dysfunction with mild mitral and trace aortic regurgitation. The patient has known CAD and has had cardiac catheterization. The patient had a cardiac catheterization with stent placement in left circumflex coronary artery in 2013 and a subsequent cardiac cath in 2014 showed a patent stent. He also has mild nonobstructive disease in LAD and right coronary artery. Given his known CAD and symptoms suggestive of unstable angina, I advised the patient to undergo cardiac catheterization. The patient was explained the risks, benefits and alternatives understood and accepted. The cardiac catheterization will be done by Dr. Hsu, his primary broommaking supervisor tomorrow. PAST MEDICAL HISTORY: Significant for CAD, status post angioplasty. MEDICATIONS: At home include omeprazole, Claritin, Lipitor and aspirin. ALLERGIES: To PENICILLIN and SULFA. FAMILY HISTORY: Negative for premature coronary artery disease. SOCIAL HISTORY: Negative for current smoking, EtOH abuse, or drug. REVIEW OF SYSTEMS: HEENT: Unremarkable. CARDIAC: As described above. RESPIRATORY: Negative. GI: Negative. GENITOURINARY: Negative. ALLERGY/IMMUNOLOGY: Negative. SKIN: Negative. MUSCULOSKELETAL: Significant for arthritis. PSYCHOSOCIAL: Negative. ENDOCRINE: Negative. DERM: Negative. CONSTITUTIONAL: Negative. ONCOLOGICAL: Negative. Rest of the system review is not relevant. PHYSICAL EXAM: Patient is comfortable at rest. Vital signs are stable. There is no jugular venous distention. Carotid upstroke is normal. There is no bruit. Chest exam reveals good air entry bilaterally. Heart exam reveals first and second heart sounds. Systolic murmur at the left lower sternal border. Abdomen is soft. Exam of extremities did not reveal any edema. Peripheral pulses are felt. SERVICE ADMINISTRATOR exam did not reveal focal neurological deficits. LABS: Show a hemoglobin of 13.3, platelet count is 268, potassium is 3.5, creatinine is 0.9, troponins are negative. LDL cholesterol is 73. ASSESSMENT: 1. Unstable angina. 2. History of multivessel coronary artery disease. 3. Dyslipidemia. PLAN: Patient will undergo cardiac catheterization tomorrow. He understands risks, benefits. CECELIA / PAULO: [id number] /
--- NOTE | 2019-08-30 15:43 | P.PN ---
Subjective Progress Note Date: 08/30/19 This 88-year-old male with past medical history significant for coronary artery disease status post stent placement in the past who follows with Dr. Edward was admitted with complains of intermittent midsternal chest pain not related to stress lasting for less than half an hour going on for a week or so. Patient was admitted his troponins were negative EKG showed normal sinus rhythm, frequent PVCs and no significant ST elevations. Patient was also noted to have leukocytosis and mild elevated BUN pertaining to possible dehydration. Patient was evaluated by cardiology team and recommended to have cardiac cath in the morning. Patient stated that he is still having off-and-on chest pain pressure- like sensation around central chest area. Denies palpitation, dizziness, diaphoresis, lightheadedness, nausea, vomiting and denies rest of the review system. Proceed Objective - Vital Signs Vital signs: Vital Signs Temp 98.7 F 08/30/19 12:00 Pulse 82 08/30/19 12:00 Resp 16 08/30/19 12:00 BP 144/83 08/30/19 12:00 Pulse Ox 98 08/30/19 12:00 Intake & Output 08/29/19 08/30/19 08/30/19 18:59 06:59 18:59 Intake Total 180 50 Output Total 0 Balance 180 50 Weight 71.214 kg 73.3 kg Intake: Oral 180 50 Output: Urine 0 Other: # Voids 1 - Constitutional General appearance: Present: cooperative, no acute distress - EENT Eyes: Present: EOMI, normal appearance ENT: Present: hearing grossly normal, NA/AT - Neck Neck: Present: normal ROM. Absent: lymphadenopathy, rigidity, stridor, thyromegaly - Respiratory Respiratory: bilateral: CTA, negative: rales, rhonchi, wheezing - Cardiovascular Rhythm: irregularly irregular Heart sounds: abnormal: S1 (Variable.), S2 (Variable.) Abnormal Heart Sounds: Absent: systolic murmur, diastolic murmur, S3 Gallop, S4 Gallop - Gastrointestinal General gastrointestinal: Present: normal bowel sounds, soft. Absent: distended, rigid, tenderness - Neurologic Neurologic: Present: CNII-XII intact - Psychiatric Psychiatric: Present: A&O x's 3, appropriate affect - Allied health notes Allied health notes reviewed: nursing - Labs CBC & Chem 7: 08/29/19 15:10 08/29/19 15:10 Assessment and Plan Plan: 1- Chest pain with a history of CAD and MS post stent placement. 2- Leukocytosis. 3- Elevated BUN. 4- GERD. 5- Hyperlipidemia 6- OA. 7- Ca. Prostate. PLAN: Patient will continue current management plan and he will be going for cardiac catheterization in the morning. I will check CBC basic panel and magnesium in the morning. Patient home medication will be continued. Once cleared by cardiology then patient will be discharged home. Time with Patient: Less than 30
[2019-08-30] MEDS: ATORVASTATIN 40 MG TAB PO SCH (21:08)
[2019-08-31] MEDS ORDERED: SODIUM CHLORIDE 0.9% 1,000 ML in EMPTY BAG 1 BAG IV ONE (06:00)
[2019-08-31] MEDS ORDERED: ATORVASTATIN 80 MG TAB PO ONE (06:00)
[2019-08-31] MEDS ORDERED: ASPIRIN 325 MG TAB PO ONE (06:00)
[2019-08-31] MEDS: ASPIRIN 81 MG PO SCH ×2 (06:39→22:05)
[2019-08-31 07:29] LABS: Basophils % (A) 0 %; Eosinophils # (A) 0.2 k/uL (0-0.7); Eosinophils % (A) 3 %; HCT 34.2 % (39.0-53.0); HGB 11.6 gm/dL (13.0-17.5); Lymphocytes # (A) 1.4 k/uL (1.0-4.8); Lymphocytes % (A) 25 %; MCH 30.6 pg (25.0-35.0); MCV 89.9 fL (80.0-100.0); Mean Platelet Volume 6.7; Monocytes # (A) 0.5 k/uL (0-1.0); Monocytes % (A) 9 %; Neutrophils # (A) 3.5 k/uL (1.3-7.7); Neutrophils % (A) 60 %; Platelet Count 215 k/uL (150-450); RDW 13.9 % (11.5-15.5); WBC 5.8 k/uL (3.8-10.6)
[2019-08-31 07:40] LABS: Calcium 8.9 mg/dL (8.4-10.2); Magnesium 1.9 mg/dL (1.6-2.3); Potassium 4.4 mmol/L (3.5-5.1)
[2019-08-31] MEDS: PANTOPRAZOLE 40 MG TABLET PO SCH (08:22)
--- NOTE | 2019-08-31 13:20 | P.PN ---
Subjective Progress Note Date: 08/31/19 This 88-year-old male with past medical history significant for coronary artery disease status post stent placement in the past who follows with Dr. Edward was admitted with complains of intermittent midsternal chest pain not related to stress lasting for less than half an hour going on for a week or so. Patient was admitted his troponins were negative EKG showed normal sinus rhythm, frequent PVCs and no significant ST elevations. Patient was also noted to have leukocytosis and mild elevated BUN pertaining to possible dehydration. Patient was evaluated by cardiology team and recommended to have cardiac cath in the morning. Patient stated that he is still having off-and-on chest pain pressure- like sensation around central chest area. Today patient reports that his chest pains are all gone and there he just took a shower and feels much better. Patient and daughter was there and they were updated per patient's verbal consent. Patient is supposed to go for cardiac catheterization somewhere around 4:30 PM. Pt. denies chest pain, palpitation, dizziness, diaphoresis, lightheadedness, nausea, vomiting and denies rest of the review system. Objective - Vital Signs Vital signs: Vital Signs Temp 98.4 F 08/31/19 04:00 Pulse 81 08/31/19 04:00 Resp 16 08/31/19 04:00 BP 129/65 08/31/19 04:00 Pulse Ox 97 08/31/19 04:00 Intake & Output 08/30/19 08/31/19 08/31/19 18:59 06:59 18:59 Intake Total 530 490 45 Output Total 0 Balance 530 490 45 Weight 71.9 kg Intake: IV 10 0.9 10 Oral 530 480 45 Output: Urine 0 Other: # Voids 2 3 - Constitutional General appearance: Present: cooperative, no acute distress - Neck Neck: Present: normal ROM. Absent: lymphadenopathy, rigidity, stridor, thyromegaly - Respiratory Respiratory: bilateral: CTA, negative: dullness, rales, rhonchi, wheezing - Cardiovascular Rhythm: irregularly irregular Heart sounds: abnormal: S1 (Variable.), S2 (Variable.) Abnormal Heart Sounds: Absent: systolic murmur, diastolic murmur, S3 Gallop, S4 Gallop - Gastrointestinal General gastrointestinal: Present: normal bowel sounds, soft. Absent: distend ed, rigid, tenderness - Neurologic Neurologic: Present: CNII-XII intact. Absent: focal deficits - Psychiatric Psychiatric: Present: A&O x's 3, appropriate affect - Allied health notes Allied health notes reviewed: nursing - Labs CBC & Chem 7: 08/31/19 06:33 11 06:33 Labs: Abnormal Lab Results - Last 24 Hours (Table) 08/31/19 08/31/19 Range/Units 06:33 06:33 RBC 3.80 L (4.30-5.90) m/uL Hgb 11.6 L (13.0-17.5) gm/dL Hct 34.2 L (39.0-53.0) % Glucose 105 H (74-99) mg/dL Assessment and Plan Plan: 1- Chest pain with a history of CAD and AL post stent placement. 2- Leukocytosis. 3- Elevated BUN. 4- GERD. 5- Hyperlipidemia 6- OA. 7- Ca. Prostate. PLAN: Patient's admission will be changed to full admit as he is going for cardiac catheterization late in the evening and will be requiring post cath monitoring. Depending upon the cardiac catheterization further management options will be discussed with the patient and his family and recommendation will be given by the cardiology team. We will continue current management plan and I will check basic panel and magnesium in the morning. Once cleared by cardiology in the morning, then patient will be discharged home. As mentioned above patient's wif e and patient daughter was updated per patient's verbal consent and all questions were answered. Time with Patient: Less than 30
[2019-08-31] MEDS ORDERED: VERAPAMIL 2.5 MG/ML 2 ML AMP ONE (16:48)
[2019-08-31] MEDS ORDERED: LIDOCAINE 1% INJ 10MG/ML (20 ML MDV) ONE (16:49)
[2019-08-31] MEDS ORDERED: HEPARIN SODIUM 1,000 UN/ML (10ML VL) ONE (16:49)
[2019-08-31] MEDS: MIDAZOLAM 2 MG/2 ML VIAL IV ONE ×2 (17:01→17:47)
[2019-08-31] MEDS ORDERED: IV FLUID CONTINUATION 400 ML IV ONE (17:01)
[2019-08-31] MEDS ORDERED: LIDOCAINE 1% INJ 10MG/ML (20 ML MDV) SQ ONE (17:03)
[2019-08-31] MEDS ORDERED: BIVALIRUDIN BOLUS 250 MG/50 ML IV ONE (17:22)
[2019-08-31] MEDS ORDERED: BIVALIRUDIN 250 MG in SODIUM CHLORIDE 0.9% 39.5 ML IV ONE (17:23)
[2019-08-31] MEDS ORDERED: CLOPIDOGREL 75 MG TAB ONE (17:30)
[2019-08-31] MEDS ORDERED: CLOPIDOGREL 75 MG TAB PO ONE (17:38)
[2019-08-31] MEDS ORDERED: IOPAMIDOL-370 125ML BTL INJ ONE (17:46)
[2019-08-31] MEDS ORDERED: IOPAMIDOL-370 50ML BTL INJ ONE (17:55)
[2019-08-31] MEDS ORDERED: MAG HYDROX/AL HYDROX/SIMETH 30 ML CUP PO PRN (18:02)
[2019-08-31] MEDS ORDERED: ATROPINE SULFATE 0.1 MG/ML 10ML SYRINGE IV PRN (18:02)
[2019-08-31] MEDS ORDERED: ZOLPIDEM 5 MG TAB PO PRN (18:02)
[2019-08-31] MEDS ORDERED: NITROGLYCERIN SL TABS 0.4 MG TAB SUBLINGUAL PRN (18:02)
[2019-08-31] MEDS ORDERED: RX INFO: IV CONTRAST WAS GIVEN 1 EACH MISC MISCELLANE PRN (18:02)
[2019-08-31] MEDS ORDERED: SODIUM CHLORIDE 0.9% 1,000 ML IV SCH (18:15)
--- NOTE | 2019-08-31 18:23 | P.PCN ---
Date of Procedure: 08/31/19 Operative Findings: CARDIAC CATHETERIZATION PERFORMING PHYSICIAN: Roland Hsu MD, RPVI PROCEDURE PERFORMED: 1. Selective right and left coronary angiogram 2. Left heart catheterization 3. Successful stenting of the ostial and proximal right coronary artery using 3.0 x 15 and 3.5 x 12 mm Xience BASIL with an excellent angiographic results and reduction of stenosis from 90% to 0% and without any complication INDICATION: This is a very pleasant 88-year-old gentleman with a past medical history significant for coronary artery disease and prior stenting of the left circ umflex as well as hypertension and dyslipidemia presented to the hospital with a chest discomfort concerning for unstable angina. The patient was seen by Dr. Cabello who recommended proceeding with coronary angiogram. COMPLICATION: None APPROACH: Right common femoral artery LEVEL OF SEDATION: Moderate sedation with a sedation the duration of 56 minutes PROCEDURE DESCRIPTION: After obtaining an informed consent, the patient was brought to cardiac cath lab radiology technician. Local anesthesia was performed using lidocaine subcutaneously. The right common femoral artery was cannulated using Seldinger technique, the guidewire passed easily, following that we advanced a 6 Sami sheath dilator assembly, the wire and dilator were removed and sheath was flushed. Selective right and left coronary angiogram using a 6-Sami JR4 and JL catheters. Following that we did left heart catheterization using 6-Sami pigtail catheter. Subsequently I did perform angioplasty on the right coronary artery. The procedure was completed there was no complication. SELECTIVE CORONARY ANGIOGRAM: The right coronary artery: Is a large caliber vessel ansa dominant vessel. The ostial RCA has a plaque appears to be in the range of 80-90%. The very proximal RCA appears to have another plaque in the range of 50%. The mid RCA appears to have mild disease only. The RCA distally appears to have a plaque in the range of 50% seems to be unchanged compared to before. Left main: Is calcified with mild disease only. Bifurcates into LCx and LAD. The left circumflex: The ostial left circumflex appeared to have a plaque in the range of 70-80%. The mid left circumflex appears to have mild disease only and gives rises into OM1 which is a stented but the stent is occluded. The left circumflex distally appears to be angiographically normal. The left anterior descending artery: The ostial/proximal LAD appears to have a plaque seems to be in the range of 70- 80%. The mid and distal LAD appears to have mild disease only. HEMODYNAMICS: The LVEDP was about 8-10 mmHg PCI OF THE RCA: Anticoagulation was initiated using Angiomax. Subsequently I did engage the RCA using JR 3.5 guide. I did 20 minutes using 2 wires. The first wire was a whisper J-wire and the second wire was advanced through wire. Over the whisper wire, I did balloon angioplasty using 2.5 x 15 mm balloon. Subsequently I did deploy in the ostial RCA 3.0 x 15 mm Xience BASIL where the stent was positioned under fluoroscopy guidance and deployed under 18 kavon. I postdilated the stent using 3.5 mm noncompliant balloon. The following angiogram showed edge dissection. I decided to cover that with another stent. I deployed 3.5 x 12 mm another Xience BASIL where the second stent was positioned under fluoroscopy guidance and deployed under 16 kavon for 20 seconds. The following angiogram showed excellent angiographic results and the procedure at that point was completed without any complication CONCLUSION: 1. Critical disease involving the ostial right coronary artery. I did perform successful stenting of the ostial RCA. 2. Severe disease involving the proximal left circumflex coronary artery 3. Severe disease involving the proximal left anterior descending artery POSTPROCEDURE MANAGEMENT: 1. Dual antiplatelet therapy 2. Risk factors modifications 3. If the patient continues to be symptomatic I would consider proceeding with a PCI of the LAD and LCx
[2019-08-31] MEDS: ATORVASTATIN 40 MG TAB PO SCH (22:06)
[2019-08-31 22:45] VITALS: RESP 16
[2019-09-01] MEDS: PANTOPRAZOLE 40 MG TABLET PO SCH (06:41)
[2019-09-01] MEDS ORDERED: CLOPIDOGREL 75 MG TAB PO SCH (09:00)
[2019-09-01] MEDS: ASPIRIN 81 MG PO SCH (09:33)
--- NOTE | 2019-09-01 09:50 | P.PN ---
Subjective Progress Note Date: 09/01/19 This is a pleasant 88-year-old gentleman with known history of coronary artery disease and prior PCI, hypertension, hyperlipidemia, osteoarthritis, GERD, who presented to the hospital with symptoms of chest discomfort, he was advised to go to the cardiac catheterization lab, subsequent to that patient underwent angioplasty and stenting of the right coronary artery. His EKG was reviewed this morning shows normal sinus rhythm with occasional PVCs, right bundle branch block pattern, no change from post-PCI. Patient feels well, he denies any chest pain or difficulty in breathing. Objective - Vital Signs Vital signs: Vital Signs Temp 98.0 F 09/01/19 04:00 Pulse 77 09/01/19 04:00 Resp 16 09/01/19 04:00 BP 157/77 09/01/19 04:00 Pulse Ox 97 09/01/19 04:00 Intake & Output 08/31/19 09/01/19 09/01/19 18:59 06:59 18:59 Intake Total 791 354 Output Total 875 Balance 791 -875 354 Weight 71.3 kg Intake: IV 160 Intake, IV Titration 586 Amount Sodium Chloride 0.9% 1, 586 000 ml In Empty Bag 1 bag @ 1 ML/KG/HR 73.3 mls/hr IV .[id number] ONE Rx#: [id number] Oral 45 354 Output: Urine 875 Other: # Voids 0 3 - Exam PHYSICAL EXAMINATION: GENERAL: 88-year-old gentleman in no acute distress at the time of my examination HEENT: Head is atraumatic, normocephalic. Pupils equal, round. Sclera anicteric. Conjunctiva are clear. Mucous membranes of the mouth are moist. Neck is supple. There is no elevated jugular venous pressure. No carotid bruit is heard. HEART EXAMINATION: Heart S1, S2 normal. No murmur or gallop heard. CHEST EXAMINATION: Lungs are clear to auscultation and precussion. No chest wall tenderness is noted on palpation or with deep breathing. ABDOMEN: Soft, nontender. Bowel sounds are heard. No organomegaly noted. EXTREMITIES: 2+ peripheral pulses with no evidence of peripheral edema and no calf tenderness noted. Right groin is soft, no evidence of any hematoma. NEUROLOGIC patient is awake, alert and oriented 3 . . - Labs CBC & Chem 7: 08/31/19 06:33 09/01/19 06:01 Assessment and Plan Plan: Assessment and plan #1 status post angioplasty and stenting of the right coronary artery #2 known history of coronary artery disease #3 hypertension #4 hyperlipidemia Plan From cardiology's perspective, patient may be able to be discharged home today on dual antiplatelet therapy in the form of a baby aspirin 81 mg daily and Plavix 75 mg daily, Lipitor 40 mg daily, we will also start the patient on a low-dose beta mahin and KENIA inhibitor. Sublingual nitroglycerin as needed for chest pain. Follow-up appointment in the office post discharge. DNP note has been reviewed, I agree with a documented findings and plan of care. Patient was seen and examined.
[2019-09-01] MEDS ORDERED: LISINOPRIL 2.5 MG TAB PO SCH (10:00)
[2019-09-01 10:13] VITALS: BP 140/64; PULSE 65; TEMP 97.7
--- NOTE | 2019-09-01 10:38 | P.DS ---
Providers Date of admission: 08/31/19 10:07 Expected date of discharge: 09/01/19 Attending physician: Polo Guerra MD Consults: 08/29/19 16:20 Consult Physician Urgent Consulting Provider: Roland sHu Consult Reason/Comments: cp Do you want consulting provider notified?: Yes 08/31/19 18:02 Consult Physician Routine Consulting Provider: [facility] Consult Reason/Comments: Post Interventional patient Do you want consulting provider notified?: Already Contacted Primary care physician: Stated None Hospital Course: This 88-year-old male with past medical history significant for CAD s/p stent placement in the past who follows with Dr. Edward was admitted with complains of intermittent mid-sternal chest pain not related to stress lasting for less than half an hour going on for a week or so. Patient was admitted his troponins were negative EKG showed normal sinus rhythm, frequent PVCs and no significant ST elevations. Patient was also noted to have leukocytosis and mild elevated BUN pertaining to possible dehydration. Patient was evaluated by cardiology team and recommended to have cardiac cath in the morning. Patient continues to have off-and-on chest pain while in the hospital but slowly improving patient was ultimately taken to the cardiac catheterization yesterday late in the evening and had stent placement to RCA ostial lesion and medical therapy was recommended along with dual antiplatelet therapy. Patient did well after the procedure and today denies chest pain, palpitation, dizziness, diaphoresis and denies rest of the review system. Objective: Patient vital signs are stable is afebrile, his lungs are clear with few basal crackles, heart regular with some irregularities, abdomen soft bowel sound positive nontender and peripheral pulses are positive. Assessment: 1- Chest pain with a history of CAD and [place] post stent placement. 2- Leukocytosis. 3- Elevated BUN. 4- GERD. 5- Hyperlipidemia 6- OA. 7- Ca. Prostate. PLAN: Patient had cardiac catheterization done yesterday which showed 3 vessel disease and RCA ostial disease received a stent and there was severe proximal circumflex and proximal LAD disease for which medical therapy was recommended. Patient was started on dual antiplatelet therapy, low-dose KENIA inhibitor and low-dose beta mahin and was recommended to discharge patient on these management and if chest pain recurs the patient will be reevaluated for possible PCI later. Cognitive with cardiology team and patient was cleared for discharge. Patient will be discharged home today on the current medications and will be following with Dr. Edward in one week. Patient did not had primary provider and it was encouraged to have a PCP close to where he lives, patient verbalizes understanding and will get a primary care provider for his care. Pertinent Studies: Chest x-ray reported no acute cardiopulmonary is process and hiatal hernia was redemonstrated. 2-D echocardiogram was done which showed technically adequate study, normal LV wall thickness, ejection fraction calculated 4550 percent. Procedures: Cardiac catheterization 08/31/2019. Patient Condition at Discharge: Fair Plan - Discharge Summary New Discharge Prescriptions: New Nitroglycerin Sl Tabs [Nitrostat] 0.4 mg SUBLINGUAL Q5M PRN #25 tab PRN Reason: Chest Pain Clopidogrel [Plavix] 75 mg PO DAILY #30 tablet Lisinopril [Zestril] 2.5 mg PO DAILY 30 Days #30 tab Metoprolol Tartrate [Lopressor] 25 mg PO DAILY 30 Days #30 tab Continue Loratadine [Claritin] 10 mg PO DAILY Atorvastatin [Lipitor] 40 mg PO HS #30 tablet Aspirin 81 mg PO BID #60 chewable Omeprazole 40 mg PO DAILY Discontinued Nitroglycerin Sl Tabs [Nitrostat] 0.4 mg SUBLINGUAL Q5M PRN #20 tab PRN Reason: Chest Pain Discharge Medication List Loratadine [Claritin] 10 mg PO DAILY 05/03/14 [History] Atorvastatin [Lipitor] 40 mg PO HS #30 tablet 05/06/14 [Rx] Aspirin 81 mg PO BID #60 chewable 05/14/14 [Rx] Omeprazole 40 mg PO DAILY 07/24/17 [History] Clopidogrel [Plavix] 75 mg PO DAILY #30 tablet 09/01/19 [Rx] Lisinopril [Zestril] 2.5 mg PO DAILY 30 Days #30 tab 09/01/19 [Rx] Metoprolol Tartrate [Lopressor] 25 mg PO DAILY 30 Days #30 tab 09/01/19 [Rx] Nitroglycerin Sl Tabs [Nitrostat] 0.4 mg SUBLINGUAL Q5M PRN #25 tab 09/01/19 [Rx] Follow up Appointment(s)/Referral(s): Roland Hsu MD [STAFF PHYSICIAN] - 09/08/19 4:30 pm (End of August appointment cancelled and rescheduled.) Nonstaff,Physician [REFERRING] - 1 Week (Please follow up with your PETROGRAPHY TEACHER Laura within a week for hospital follow up.) Patient Instructions/Handouts: Heart Healthy Diet (DC), Coronary Intravascular Stent Placement (DC) Activity/Diet/Wound Care/Special Instructions: CARDIAC CATHETERIZATION: 1. Support your puncture site by applying firm, steady pressure whenever you cough, laugh, sneeze or bear down to have a bowel movement (2-day restriction). 2. Watch for any excessive bruising, active bleeding, a firm knot forming under your skin, extreme tenderness and signs of infection (redness, swelling, fever). 3. Shower daily, do not soak puncture in a tub bath, jacuzzi, pool, hernández etc. for 1 week. This is to prevent risk of infection. 4. Drink plenty of fluids the day of and day after your procedure to flush contrast dye out of your kidneys. 5. Take all medications as directed. Never stop any new medication without your physicians OK. 6. No driving for 2 days after procedure. 7. 10- pound weight lifting restriction for 1 week. 8. Low sodium/low fat diet. 9. Activity limited until follow up appointment with your manager transportation. In case of any problems, please call [facility], Naveen Alfaro @ [phone]. Discharge Disposition: HOME SELF-CARE
[2019-09-01 11:35] VITALS: BMI 21.3
[2019-09-02] MEDS ORDERED: METOPROLOL TARTRATE 25 MG TAB PO SCH (09:00)
[2019-09-02] MEDS ORDERED: ASPIRIN 81 MG PO SCH (09:00)
--- NOTE | 2019-09-02 16:59 | CDI ---
Documentation Clarification Form Date: 09/02/19 From: Maria Antonia Ellis Phone: If you have a question about this query, please contact Karen Camarillo People Manager at [phone] between 8am and 5pm. Admit Date: 08/29/19 Discharge Date:09/01/19 Patient Name: Neymar Mai Visit Number: [id number] ATTENTION: The Clinical Documentation Specialists (CDI) and [facility] Coding Staff appreciate your assistance in clarifying documentation. Please respond to the clarification below the line at the bottom and electronically sign. The CDI & [facility] Coding staff will review the response and follow-up if needed. Please note: Queries are made part of the Legal Health Record. If you have any questions, please contact the author of this message via ITS. Dear Shaikh Gasca Chest pain is documented in your discharge summary. Documentation in Dr. Cabello's consult note state that the patient's symptoms are suggestive of unstable angina. Documentation in the procedure note states that the patient presented to the hospital with a chest discomfort concerning for unstable angina Patient C/O: Midsternal stabbing, sharp chest pain intermittent on and off. No relation to exertion History/Risk factors: CAD, previous MT, hypertension Clinical Indicators: Chest pain Labs: Troponin x3 <0.012 Heart Cath: Critical disease involving the ostial RCA, severe disease involoving the proximal left circumflex coronary artery, severe disease involving the proximal left anterior descending artery. Treatment: Heart cath with stenting of the ostial RCA. In your professional opinion, can please clarify if the chest pain signifies, or is due to: CAD with angina (specify type of angina if known) Chest pain unspecified Other condition, please specify Unable to determine Please change primary diagnosis to 1- Chest Pain Un-specified. MTDD
== END 2019-09-01 11:48 | disposition home or self-care (01) | DRG 247 ==
LOC: EC 14:50 → 3SCARD 16:20 → OBSVTOIN 08-31 10:07
PROVIDERS: ADMIT Family Medicine; ATTEND Family Medicine
PROC: B2111ZZ Fluoroscopy of Multiple Coronary Arteries using Low Osmolar Contrast (ICD-10-PCS; 2019-08-31)
PROC: 027035Z Dilation of Coronary Artery, One Artery with Two Drug-eluting Intraluminal Devices, Percutaneous Approach (ICD-10-PCS; principal; 2019-08-31 16:15)
PROC: 4A023N7 Measurement of Cardiac Sampling and Pressure, Left Heart, Percutaneous Approach (ICD-10-PCS; 2019-08-31 16:15)
DX: R07.9 Chest pain, unspecified (principal); I25.110 Atherosclerotic heart disease of native coronary artery with unstable angina pectoris; E86.0 Dehydration; I45.10 Unspecified right bundle-branch block; D72.829 Elevated white blood cell count, unspecified; E78.5 Hyperlipidemia, unspecified; I10 Essential (primary) hypertension; I25.2 Old myocardial infarction; K21.9 Gastro-esophageal reflux disease without esophagitis; M19.90 Unspecified osteoarthritis, unspecified site; N42.9 Disorder of prostate, unspecified; H93.13 Tinnitus, bilateral; I49.3 Ventricular premature depolarization; Z79.82 Long term (current) use of aspirin; Z79.899 Other long term (current) drug therapy; Z88.0 Allergy status to penicillin; Z88.2 Allergy status to sulfonamides; Z95.5 Presence of coronary angioplasty implant and graft; Z85.46 Personal history of malignant neoplasm of prostate; Z92.3 Personal history of irradiation; Z87.820 Personal history of traumatic brain injury; Z80.9 Family history of malignant neoplasm, unspecified
CPT/HCPCS: 36415; 71046; 80048; 80053; 80061; 82565; 83735; 84484; 85025; 85610; 85730; 93005; 93306; 93458; 94760; 99285; C1874